=== PATIENT | male | born 1965 | race African-American/Black ===

== ENCOUNTER 2020-02-01 19:04 | Emergency (ER) | payer OTHER ==
[~2020-02-01] VITALS: Ht 177.8 cm; Wt 81.6 kg
--- NOTE | 2020-02-01 19:05 | NUR ---
ED Nurse Note: Patient brought in by [employer] d/t male urogenital penile pain and possible infection. Patient aao x 4 and ambulatory. Pain 5/10 on penile area, aching. Patient placed in room accompanied by [employer] officers. No acute distress noted.
--- NOTE | 2020-02-01 19:07 | NUR ---
ED Nurse Note: ERMD at bedside for patient assessment accompanied by Mike Argueta RN.
--- NOTE | 2020-02-01 19:07 | NUR ---
ED Nurse Note: ERMD at bedside.
[2020-02-01 19:14] VITALS: BP 130/89
[2020-02-01] MEDS ORDERED: CEPHALEXIN500 M1 ORAL (19:14)
--- NOTE | 2020-02-01 19:14 | Emergency Room Report ---
History of Present Illness General Chief Complaint: Medical Clearance Source: Patient, EMS Present Illness HPI 54-year-old male presents for medical clearance patient with a history of penile ulceration after a cock ring was on for too long patient complains of 2 days of penile pain, no aggravating relieving factors severity is mild, constant no fevers no chills patient was about to be arrested however he stated that he needed his penile ulceration checked. Allergies: Coded Allergies: No Known Allergies (Unverified , 02/01/20) COVID-19 Screening Contact w/high risk pt: No Recent Travel to affected area: No Experienced COVID-19 symptoms?: No Patient History Past Medical History: see triage record Reviewed Nursing Documentation: PMH: Agreed; PSxH: Agreed Nursing Documentation-PMH Past Medical History: No Stated History Review of Systems All Other Systems: negative except mentioned in HPI Physical Exam Vital Signs Date Time Temp Pulse Resp B/P (MAP) Pulse Ox O2 Delivery O2 Flow Rate FiO2 02/01/20 19:00 97.7 68 14 126/98 (107) 99 Room Air General Appearance: well appearing, no apparent distress Head: normocephalic, atraumatic ENT: hearing grossly normal, normal voice Neck: full range of motion, supple Respiratory: no respiratory distress, speaking full sentences Genitourinary: stefan - Jacob MOSELEY patient with ulceration of the penis chronic in nature no evidence of active infection or pus or drainage granulation tissue seen circumscribed throughout the penis Neurologic: alert, normal gait Psychiatric: mood/affect normal Skin: no rash Medical Decision Making Diagnostic Impression: Primary Impression: Medical clearance for incarceration Additional Impression: Chronic penis ulcer ER Course Patient presents with ulcerated penis most likely chronic in nature due to penile ring patient counseled that he needs wound care and urology follow-up no acute IV antibiotics required or urology needed. Patient was already seen at another hospital and subsequently discharged Disposition Long Term Last Vital Signs Date Time Temp Pulse Resp B/P (MAP) Pulse Ox O2 Delivery O2 Flow Rate FiO2 02/01/20 19:00 97.7 68 14 126/98 (107) 99 Room Air Disposition: [facility] IN [facility] Condition: Stable Scripts Cephalexin* (KEFLEX*) 500 Mg Tablet 500 MG ORAL EVERY 6 HOURS, #28 CAP Prov: Cristopher Tejeda MD 02/01/20 Referrals: [facility] Lis Fitzgerald. [facility] Departure Forms: Long Term Clearance Patient Instructions: Wound Care Additional Instructions: The patient was provided with discharge instructions, notified to follow-up with a primary care doctor and or specialist in the next 24-48 hours, and to return to the ED if they have worsening of their symptoms. Please note that this report is being documented using DRAGON technology. This can lead to erroneous entry secondary to incorrect interpretation by the dictating instrument. YOU HAVE CHRONIC ULCERATION OF PENIS AFTER PENILE RING, PLEASE FOLLOW-UP WITH UROLOGY IN ORDER TO HAVE WOUND CARE ADDRESSED Cristopher Tejeda MD February 01, 2020 19:14
[2020-02-01 19:15] VITALS: BP 128/90
--- NOTE | 2020-02-01 19:15 | NUR ---
ER DISCHARGE NOTE: Patient is cleared to be discharged per ERMD, pt is aox4, on room air, with stable vital signs. pt and [employer] officers were given dc and prescription instructions, pt and [employer] was able to verbalize understanding. pt is able to ambulate with steady gait upon discharged accompanied by [employer] officers. no acute distress upon discharge.
== END 2020-02-01 19:15 ==
LOC: EDBD 19:04 → EMR 19:12
DX: Z02.89 Encounter for other administrative examinations (principal); N48.5 Ulcer of penis
CPT/HCPCS: 99282